=== PATIENT | male | born 1975 | race Caucasian/White ===

== ENCOUNTER 2025-04-15 13:51 | Inpatient (IN) | payer SELFPAY ==
[2025-04-15] VITALS (57 sets, daily range): BP systolic 79–166; BP diastolic 34–110; PULSE 92–148; RESP 10–28; TEMP 36.3; O2SAT 87–100
--- NOTE | 2025-04-15 13:58 | ECG_ITS ---
[facility] Test Date: 2025-04-15 Pat Name: Bala Canas Department: Room: Gender: Male Instrument Man: : 1975 Requested By: Bladimir Mtz Order Number: [id number] Moises MD: Vincent Bradford M.D. Measurements Intervals [place] Rate: 136 P: 0 RI: 0 QRS: 66 QRSD: 135 T: 21 QT: 348 QTc: 524 Interpretive Statements ATRIAL FIBRILLATION WITH RAPID VENTRICULAR RESPONSE INTRAVENTRICULAR CONDUCTION DELAY [130+ ms QRS DURATION] No previous ECG available for comparison Electronically Signed On 04-23-2025 09:27:54 CDT by Vincent Bradford M.D. [email or web address]
--- NOTE | 2025-04-15 14:00 | CT_ITS ---
WS: [id number] CT HEAD NONCONTRAST HISTORY: fall TECHNIQUE: Contiguous axial imaging performed through the brain. Bone and soft tissue windows. Sagittal and coronal reformats reviewed. All CT scans at [facility] use at least one of these dose optimization techniques: automated exposure control; mA and/or kV adjustment per patient size (includes targeted exams where dose is matched to clinical indication); or iterative reconstruction. DLP: 1133.45 mGy.cm COMPARISON: None available. No acute intracranial hemorrhage, midline shift or mass effect. No atrophy or prior infarcts or herniation. Ventricles: Normal size with no hydrocephalus. Paranasal sinuses: As visualized are clear. Mastoid air cells: Well pneumatized. Calvarium and scalp: Skull is intact with no soft tissue edema or swelling. CT/CT head wo con* [id number] IMPRESSION: Negative head CT.
--- NOTE | 2025-04-15 14:13 | W.ED.SYNCOPE ---
HPI - Syncope General: Chief Complaint: Syncope Stated Complaint: Syncope Time Seen by Provider: 04/15/25 13:53 Source: patient and EMS Mode of arrival: EMS Limitations: no limitations History of Present Illness: 49-year-old male states that he was at the store and had a syncopal event. He states he felt lightheaded and passed out at his head on the floor when he fell. States he has had a history of syncopal events in the past. He is initially hypotensive with EMS blood pressure here is normal he does have a history of A-fib is in A-fib with RVR here. He denies any chest pain has a mild headache from hitting his head Associated symptoms: Deny abdominal pain, chest pain, fever(s), headache(s) or nausea Related Data Home Medications ?Medication ?Instructions ?Recorded ?Confirmed albuterol sulfate 90 mcg/actuation 2 puff inhalation Q6H PRN 04/15/25 04/15/25 aerosol inhaler Shortness Of Breath Or Wheezing apixaban 5 mg tablet (Eliquis) 5 mg PO BID 04/15/25 04/15/25 bumetanide 2 mg tablet 6 mg PO BID 04/15/25 04/15/25 dapagliflozin propanediol 10 mg 10 mg PO DAILY 04/15/25 04/15/25 tablet (Farxiga) dofetilide 125 mcg capsule 125 mcg PO BID 04/15/25 04/15/25 fluticasone furoate 100 1 inh inhalation DAILY 04/15/25 04/15/25 mcg-vilanterol 25 mcg/dose inhalation powder (Breo Ellipta) methocarbamol 500 mg tablet 500 mg PO TID PRN muscles spasm 04/15/25 04/15/25 metolazone 5 mg tablet See Rx Instructions .Route .COMPLEX 04/15/25 04/15/25 pantoprazole 40 mg tablet,delayed 40 mg PO QPM 04/15/25 04/15/25 release potassium chloride 10 mEq 20 meq PO DAILY 04/15/25 04/15/25 tablet,extended release spironolactone 50 mg tablet 50 mg PO QAM 04/15/25 04/15/25 Allergies Allergy/AdvReac Type Severity Reaction Status Date / Time amiodarone Allergy Unknown Verified 04/15/25 13:55 Review of Systems Const: Denies: fever(s), chills, body aches or change in appetite ENMT: Denies: throat pain or dental pain Card: Reports: irregular heart rhythm and syncope; Denies: chest pain Resp: Denies: dyspnea GI: Denies: abdominal pain, nausea, vomiting or diarrhea Musc: Denies: neck pain or back pain Skin/Breast: Denies: rash Neuro: Denies: headache(s) Physical Exam Const: COMMON NORMALS: patient oriented x3 HENMT: COMMON NORMALS: normocephalic and atraumatic HEAD & SCALP: normocephalic and atraumatic Eye: COMMON NORMALS: Equal, round and reactive pupils present and EOMs intact bilaterally PUPIL: Yes Equal, round and reactive pupils present Neck/C-Spine: COMMON NORMALS: full ROM and supple Chest: COMMONS NORMALS: normal inspection of the chest Resp: COMMON NORMALS: normal respiratory effort, No retractions, No use of accessory muscles and clear to auscultation bilaterally AUSCULTATION: clear to auscultation bilaterally Cardio: COMMON NORMALS: No murmurs present (Cardio) RATE: tachycardic RHYTHM: abnormal rhythm irregularly irregular GI: COMMON NORMALS: Normal to inspection, nondistended, normoactive bowel sounds present, Soft to palpation, non-tender and no masses PALPATION: Yes Soft to palpation Extremity: COMMON NORMALS: normal to inspection and full ROM Neuro: COMMON NORMALS: patient oriented x3, moves all extremities and no focal motor deficits Psych: COMMON NORMALS: mental status grossly normal, Normal thought process present and cooperative THOUGHT PROCESS: Normal thought process present Skin: COMMON NORMALS: no rashes or lesions noted and no wounds GENERAL SKIN EXAM: no rashes or lesions noted Course Vital Signs: Vital signs: Vital Signs Temperature 97.4 F L 04/15/25 13:57 Pulse Rate 132 H 04/15/25 17:15 Respiratory Rate 12 04/15/25 17:15 Blood Pressure 139/110 04/15/25 17:15 Pulse Oximetry 98 04/15/25 17:10 MDM - Syncope Medical Decision Making 49-year-old male presented here after syncopal event he is in A-fib with RVR did find to be severely hypokalemic and hyponatremic. Did give him oral potassium along with IV fluids head CT is normal spoke to the hospitalist will admit at this time to the ICU Medical Records I reviewed the patient's medical records. Lab Data I reviewed the patient's lab results. 04/15/25 14:07 04/15/25 15:[address] 04/15/25 14:00 IMPRESSION: Negative head CT. Chest X-Ray 04/15/25 14:44 IMPRESSION: 1. Negative chest. Laboratory Results WBC 12.87 10^3/uL (3.29-11.43) H 04/15/25 14:07 RBC 5.36 10^6/uL (3.85-5.65) 04/15/25 14:07 Hgb 17.50 g/dL (11.27-16.99) H 04/15/25 14:07 Hct 46.8 % (37-53) 04/15/25 14:07 MCV 87.3 fl (82-101) 04/15/25 14:07 MCH 32.6 pg (27-33) 04/15/25 14:07 MCHC 37.4 g/dL (30-55) 04/15/25 14:07 RDW 13.8 % (12.1-15.1) 04/15/25 14:07 Plt Count 441 10^3/cmm (157-399) H 04/15/25 14:07 MPV 9.1 fL (7.4-10.4) 04/15/25 14:07 Neut % (Auto) 77.5 % 04/15/25 14:07 Lymph % (Auto) 10.6 % 04/15/25 14:07 Kane % (Auto) 9.9 % 04/15/25 14:07 Eos % (Auto) 0.1 % 04/15/25 14:07 Baso % (Auto) 0.2 % 04/15/25 14:07 Neut # (Auto) 9.97 10^3/uL (1.8-7.7) H 04/15/25 14:07 Lymph # (Auto) 1.4 10^3/uL (0.8-4.8) 04/15/25 14:07 Kane # (Auto) 1.3 10^3/uL (0.2-0.9) H 04/15/25 14:07 Eos # (Auto) 0.0 10^3/uL (0.0-0.8) 04/15/25 14:07 Baso # (Auto) 0.0 10^3/uL (0.0-0.1) 04/15/25 14:07 Nucleated RBC % (auto) 0 % 04/15/25 14:07 Nucleated RBCs # 0.0 /100WBC 04/15/25 14:07 Sodium 119 mmol/L (136-145) L* 04/15/25 15:03 Potassium 2.2 mmol/L (3.5-5.1) L* 04/15/25 15:03 Chloride 71 mmol/L (98-107) L 04/15/25 15:03 Carbon Dioxide 24 mmol/L (22-29) 04/15/25 15:03 Anion Gap 26.2 (5-19) H 04/15/25 15:03 BUN 56 mg/dL (6-20) H 04/15/25 15:03 Creatinine 1.5 mg/dL (0.7-1.2) H 04/15/25 15:03 GFR Calculation 49.5 mL/min (90-130) L 04/15/25 15:03 Glucose 134 mg/dL (65-115) H 04/15/25 15:03 Calculated Osmolality 265 mOsm/kg (285-295) L 04/15/25 15:03 Calcium 10.6 mg/dL (8.5-10.5) H 04/15/25 15:03 Magnesium 2.6 mg/dL (1.7-2.3) H 04/15/25 15:03 Total Bilirubin 1.3 mg/dL (0.15-1.2) H 04/15/25 14:07 AST 20 U/L (0-40) 04/15/25 14:07 ALT 21 U/L (0-41) 04/15/25 14:07 Alkaline Phosphatase 120 U/L (40-130) 04/15/25 14:07 Total Protein 8.9 g/dL (6.6-8.7) H 04/15/25 14:07 Albumin 4.5 g/dL (3.5-5.2) 04/15/25 14:07 Globulin 4.4 g/dL (1.3-4.6) 04/15/25 14:07 All radiology interpretation(s) finalized by discharge EKG Data EKG 1: I personally reviewed and interpreted this EKG as follows: EKG interpretation date: 04/15/25 EKG interpretation time: 13:58 Interpretation: afib rvr hr [address] elevation [id number] qtc 428 Critical Care Time Critical Care Time: Critical Care Time: Yes Total Critical Care Time: 40 Attestation: The high probability of a clinically significant, sudden or life threatening deterioration of the patient's electrolytes system(s) required my full and direct attention, intervention and personal management. The critical care time is as shown. This time is in addition to time spent performing any reported procedures but includes the following: [x] Data and vital sign review and interpretation [x] Patient assessment, examination and intervention [x] Documentation [x] Medication orders and management Discharge Plan Discharge Patient Disposition: Admitted As Inpatient Admit Provider: Claudette Sanders Clinical Impression: Hypokalemia, Hyponatremia, Syncope, Atrial fibrillation with RVR Condition: Stable Coding Level of Care Code ED Supervisor Paper Machine for Henrikg Carolee
[2025-04-15] MEDS: sodium chloride 0.9% 1,000 ML 999 ML IV (14:19)
[2025-04-15 14:35] LABS: Basophils % 0.2 %; Eosinophils % 0.1 %; Hematocrit 46.8 % (37-53); Lymphocytes # 1.4 10^3/uL (0.8-4.8); Lymphocytes % 10.6 %; Mean Corpuscular HGB Conc 37.4 g/dL (30-55); Mean Corpuscular Hemoglobin 32.6 pg (27-33); Mean Corpuscular Volume 87.3 fl (82-101); Mean Platelet Volume 9.1 fL (7.4-10.4); Monocytes # 1.3 10^3/uL (0.2-0.9); Monocytes % 9.9 %; Neutrophils # 9.97 10^3/uL (1.8-7.7); Neutrophils % 77.5 %; Nucleated Red Blood Cells % 0 %; Platelet Count 441 10^3/cmm (157-399); Red Blood Count 5.36 10^6/uL (3.85-5.65); Red Cell Distribution Width 13.8 % (12.1-15.1); White Blood Count 12.87 10^3/uL (3.29-11.43)
--- NOTE | 2025-04-15 14:44 | XR_ITS ---
WS: [id number] Exam: XR chest 1V portable [id number] Date/Time of Exam: 04/15/2025 2:54 PM Reason For Exam: sob No priors. The lungs are clear and fully expanded. Normal cardiomediastinal silhouette. No pleural effusions. Normal bony structures. XR/XR chest 1V portable [id number] IMPRESSION: 1. Negative chest.
[2025-04-15 14:50] LABS: Alanine Aminotransferase 21 U/L (0-41); Albumin Level 4.5 g/dL (3.5-5.2); Alkaline Phosphatase 120 U/L (40-130); Anion Gap 28.4 (5-19); Aspartate Amino Transferase 20 U/L (0-40); Blood Urea Nitrogen 58 mg/dL (6-20); Calcium 10.9 mg/dL (8.5-10.5); Carbon Dioxide 24 mmol/L (22-29); Chloride 69 mmol/L (98-107); Globulin 4.4 g/dL (1.3-4.6); Glucose 139 mg/dL (65-115); Osmolality Calculated 266 mOsm/kg (285-295); Total Bilirubin 1.3 mg/dL (0.15-1.2); Total Protein 8.9 g/dL (6.6-8.7)
[2025-04-15 14:53] LABS: Potassium 2.4 mmol/L (3.5-5.1); Sodium 119 mmol/L (136-145)
[2025-04-15 15:24] LABS: Anion Gap 26.2 (5-19); Blood Urea Nitrogen 56 mg/dL (6-20); Calcium 10.6 mg/dL (8.5-10.5); Carbon Dioxide 24 mmol/L (22-29); Chloride 71 mmol/L (98-107); Glomerular Filtration Rate 49.5 mL/min (90-130); Glucose 134 mg/dL (65-115); Osmolality Calculated 265 mOsm/kg (285-295)
[2025-04-15] MEDS: dilTIAZem 5 mg/mL SDV 5 mL 10 MG IVP ×2 (15:26→18:18)
[2025-04-15] MEDS: ondansetron 2 mg/ML SDV 2 mL 4 MG IVP (15:27)
[2025-04-15 15:29] LABS: Potassium 2.2 mmol/L (3.5-5.1); Sodium 119 mmol/L (136-145)
[2025-04-15] MEDS: potassium chloride ER 20 mEq Tablet 80 MEQ PO (15:51)
[2025-04-15 15:58] LABS: Magnesium 2.6 mg/dL (1.7-2.3)
--- NOTE | 2025-04-15 17:03 | PC.PHAR ---
I called [facility] and received their List from discharge of patient
--- NOTE | 2025-04-15 17:30 | PM.HP ---
Providers/Chief Complaint Admitting Physician: Claudette Sanders MD Chief Complaint: Syncope History of Present Illness Bala Cook is a 49 year old male with a PMH A fib on A/c with and dofetilide who is brought to the ER after having had a syncopal episode at [facility] earlier this afternoon. Patient denies having had any immediate symptoms prior to the syncopal event however says he had been feeling poorly the past few days with generalized weakness. He was admitted at [facility] most recently 3-4 weeks ago for A fib with RVR and had undergone cardioversion. He reports multiple past episodes of A fib RVR , which have needed cardioversion in the past. On Avg, he has needed the procedure at least once a year. He has previously had an ablative procedure which was not successful in keeping in sinus rhythm. He has been recommended to undergo AV node ablation with PPM implantation and is considering this. He has previously tried several medications including sotalol which has not helped. 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 Most recently he is on dofetilide 125mcg BID. He is noted today to have hyponatremia and hypokalemia. He states he has chronic hyponatremia, for which he is on spirinolactone daily, i suspect he may be referring to hypokalemia instead. He takes Bumex everyday for h/o CHF. There has been no recent changes in his diuretic regimen. Denies any GI losses, no nausea, vomiting. Review of Systems General: Reports: 10 or more systems reviewed and unremarkable except in HPI and below Const: Denies: fever(s), chills or body aches Eyes: Denies: change in vision, blurry vision or photophobia ENMT: Reports: hoarseness; Denies: throat pain, enlarged tonsils, odynophagia or nasal congestion Card: Denies: chest pain, palpitations, irregular heart rhythm, edema, swelling of feet/ankles, lightheadedness, pre-syncope, dyspnea on exertion or orthopnea Resp: Denies: dyspnea, productive cough, non-productive cough, wheezing, stridor, pain on inspiration, change in phlegm color, hemoptysis or chest congestion GI: Denies: abdominal pain, nausea, vomiting, hematemesis, coffee ground emesis, dysphagia, heartburn, diarrhea, constipation, GI cramping, change in stool character, hematochezia or melena : Denies: flank pain, dysuria, urinary frequency, urinary urgency, urinary hesitancy or hematuria Musc: Denies: neck pain, back pain, extremity pain, joint swelling, joint warmth or deformity Neuro: Denies: headache(s), numbness in extremities, weakness in extremities, sensory changes, difficulty walking, frequent falls, dizziness, vertigo, behavioral changes, Slurred speech present or seizure-like activity Psych: Denies: anxiety, depression, suicidal ideation or homicidal ideation Endo: Denies: polyuria, polydipsia, tired all the time, cold intolerance or hot flashes Shine/Lymph: Denies: easy bruising or easy bleeding Medications/Allergies Home Medications ?Medication ?Instructions ?Recorded ?Confirmed ?Last Taken ?Type albuterol sulfate 90 mcg/actuation 2 puff inhalation Q6H PRN 04/15/25 04/15/25 Unknown History aerosol inhaler Shortness Of Breath Or Wheezing apixaban 5 mg tablet (Eliquis) 5 mg PO BID 04/15/25 04/15/25 04/15/25 History bumetanide 2 mg tablet 6 mg PO BID 04/15/25 04/15/25 04/15/25 History dapagliflozin propanediol 10 mg 10 mg PO DAILY 04/15/25 04/15/25 04/15/25 History tablet (Farxiga) dofetilide 125 mcg capsule 125 mcg PO BID 04/15/25 04/15/25 04/15/25 History fluticasone furoate 100 1 inh inhalation DAILY 04/15/25 04/15/25 04/14/25 History mcg-vilanterol 25 mcg/dose inhalation powder (Breo Ellipta) methocarbamol 500 mg tablet 500 mg PO TID PRN muscles spasm 04/15/25 04/15/25 04/15/25 History metolazone 5 mg tablet See Rx Instructions .Route .COMPLEX 04/15/25 04/15/25 04/15/25 History pantoprazole 40 mg tablet,delayed 40 mg PO QPM 04/15/25 04/15/25 04/14/25 19:00 History release potassium chloride 10 mEq 20 meq PO DAILY 04/15/25 04/15/25 04/14/25 History tablet,extended release spironolactone 50 mg tablet 50 mg PO QAM 04/15/25 04/15/25 04/14/25 History Allergies Allergy/AdvReac Type Severity Reaction Status Date / Time amiodarone Allergy Unknown Verified 04/15/25 13:55 Vitals/I&O/Wt Last Vital Signs Temp 97.4 F L 04/15/25 13:57 Pulse 109 H 04/15/25 21:46 Resp 16 04/15/25 21:46 BP 117/61 04/15/25 21:46 Pulse Ox 97 04/15/25 21:46 O2 Del Method Room Air 04/15/25 21:46 04/15/25 04/15/25 04/15/25 06:59 14:59 22:59 Intake Total 1000 / 1000 Balance 1000 / 1000 Weight last 48 hrs Weight 117.934 kg Physical Exam Narrative: General: No acute distress, AO x3 HEENT: PERRLA, pupils bilaterally equal and reactive, pallors not present Chest: Normal vesicular breath sounds, no added sounds, equal good air entry bilaterally CVS: S1-S2 regular, no murmurs, no tachycardia, no gallops, no rubs Abdomen: Soft, nontender, no organomegaly, bowel sounds present Neuro: No focal deficits, no facial deformity, AO x3, power 5/5 in all limbs Ext: Bruising over the left elbow Data 04/15/25 14:07 04/15/25 17:54 Other data: Radiology Impressions Head CT 04/15/25 14:00 IMPRESSION: Negative head CT. Chest X-Ray 04/15/25 14:44 IMPRESSION: 1. Negative chest. Laboratory Results WBC 12.87 10^3/uL (3.29-11.43) H 04/15/25 14:07 RBC 5.36 10^6/uL (3.85-5.65) 04/15/25 14:07 Hgb 17.50 g/dL (11.27-16.99) H 04/15/25 14:07 Hct 46.8 % (37-53) 04/15/25 14:07 MCV 87.3 fl (82-101) 04/15/25 14:07 MCH 32.6 pg (27-33) 04/15/25 14:07 MCHC 37.4 g/dL (30-55) 04/15/25 14:07 RDW 13.8 % (12.1-15.1) 04/15/25 14:07 Plt Count 441 10^3/cmm (157-399) H 04/15/25 14:07 MPV 9.1 fL (7.4-10.4) 04/15/25 14:07 Neut % (Auto) 77.5 % 04/15/25 14:07 Lymph % (Auto) 10.6 % 04/15/25 14:07 [place] % (Auto) 9.9 % 04/15/25 14:07 Eos % (Auto) 0.1 % 04/15/25 14:07 Baso % (Auto) 0.2 % 04/15/25 14:07 Neut # (Auto) 9.97 10^3/uL (1.8-7.7) H 04/15/25 14:07 Lymph # (Auto) 1.4 10^3/uL (0.8-4.8) 04/15/25 14:07 [place]entry # (Auto) 1.3 10^3/uL (0.2-0.9) H 04/15/25 14:07 Eos # (Auto) 0.0 10^3/uL (0.0-0.8) 04/15/25 14:07 Baso # (Auto) 0.0 10^3/uL (0.0-0.1) 04/15/25 14:07 Nucleated RBC % (auto) 0 % 04/15/25 14:07 Nucleated RBCs # 0.0 /100WBC 04/15/25 14:07 Sodium 121 mmol/L (136-145) L 04/15/25 17:54 Potassium 2.6 mmol/L (3.5-5.1) L* 04/15/25 17:54 Chloride 73 mmol/L (98-107) L 04/15/25 17:54 Carbon Dioxide 26 mmol/L (22-29) 04/15/25 17:54 Anion Gap 24.6 (5-19) H 04/15/25 17:54 BUN 54 mg/dL (6-20) H 04/15/25 17:54 Creatinine 1.4 mg/dL (0.7-1.2) H 04/15/25 17:54 GFR Calculation 53.6 mL/min (90-130) L 04/15/25 17:54 Glucose 115 mg/dL (65-115) 04/15/25 17:54 POC Glucose 140 mg/dL (70-110) H 04/15/25 21:15 Calculated Osmolality 268 mOsm/kg (285-295) L 04/15/25 17:54 Calcium 10.2 mg/dL (8.5-10.5) 04/15/25 17:54 Magnesium 2.6 mg/dL (1.7-2.3) H 04/15/25 15:03 Total Bilirubin 1.3 mg/dL (0.15-1.2) H 04/15/25 14:07 AST 20 U/L (0-40) 04/15/25 14:07 ALT 21 U/L (0-41) 04/15/25 14:07 Alkaline Phosphatase 120 U/L (40-130) 04/15/25 14:07 Total Protein 8.9 g/dL (6.6-8.7) H 04/15/25 14:07 Albumin 4.5 g/dL (3.5-5.2) 04/15/25 14:07 Globulin 4.4 g/dL (1.3-4.6) 04/15/25 14:07 A&P Assessment and plan (1) Syncope: patient with history as noted above presenting with syncopal episode today Supect this may be related to underlying arrhythmia as he is noted to be in A fib with RVR. States that he had cardioversion one month ago following which he had been in sinus rhythm and is surprised to be in A fib today. Possible that RVR may have led to the syncope today, CT head did not show any intracranial lesions or any bleeding check echocardiogram (2) Atrial fibrillation with RVR: Noted to be in A fib with RVR Continue dofetilide Trial of cardizem 10mg IVP followed by cardizem infusion for rate control. Will add bet ablockers additionally Patient reports failiure of several previosu drug classes , uncertain if tried digoxin in the past. 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 related to dofetilide check urine lytes start NS @ 50 cc/ hr and closely monitor. Aim to increase Na by 6-8 meq per 24 hrs , unceratin chronicity check Na every 6 hrs (4) Hypokalemia: hypokalemia, likely medication related supplemented both iv and po check Na every 6 hrs Plan dvt ppx: Eliquis Full code PDMP PDMP Reviewed: Not Reviewed Attestations Medical Necessity Statement*: > 2 midnight admission is anticipated Coding Level of Care Code Acute Code for Chg Fwd High MDM includes number and complexity of problems actively addressed during encounter, amount and/or complexity of data reviewed/ordered and described risk of complication, morbidity or mortality of management as documented Diagnoses Syncope R55 Atrial fibrillation with RVR I48.91 Hyponatremia E87.1 Hypokalemia E87.6
--- NOTE | 2025-04-15 17:42 | USCV_ITS ---
Bala Cook Age: 49 Gender: M : 1975 Exam Date: 04/15/2025 19:45 Ordering Phys: Claudette Sanders MD Technologist: Benigno Castañeda [place] [facility] [place]: syncope, atrial fibrillation BP: 139 / 110 HR: 102 Rhythm: Atrial fibrillation Technical Quality: Adequate MEASUREMENTS (Male / Female) Normal Values 2D ECHO LV Diastolic Diameter PLAX 5.7 cm 4.2 - 5.9 / 3.9 - 5.3 cm IVS Diastolic Thickness 1.5 cm 0.6 - 1.0 / 0.6 - 0.9 cm IVS Systolic Thickness 1.3 cm LVPW Diastolic Thickness 1.4 cm 0.6 - 1.0 / 0.6 - 0.9 cm LVPW Systolic Thickness 1.7 cm LVOT Diameter 2.3 cm LV Ejection Fraction 2D Teich 26.7 % LV Ejection Fraction MOD 4C 16.7 % LV Ejection Fraction MOD 2C 26.9 % LV Ejection Fraction 2C AL 25.7 % LA Diameter 5.1 cm Aorta at Sinotubular Diameter 3.2 cm IVC Diameter 1.1 cm M-MODE LA Ao Ratio MM 1.1 AV Cusp Separation MM 2.1 cm DOPPLER AV Peak Velocity 123.0 cm/s LVOT Peak Velocity 58.0 cm/s AV Area Cont Eq vti 1.6 cm squared AV Area Cont Eq pk 1.9 cm squared MV Peak Velocity 74.0 cm/s MV Area PHT 3.3 cm squared Mitral E to A Ratio 0.0 TR Peak Velocity 194.0 cm/s TR Peak Gradient 15.1 mmHg TV Peak E Velocity 19.0 cm/s PV Peak Velocity 79.0 cm/s FINDINGS Left Ventricle Left ventricle is mildly dilated. LV systolic function is severely reduced with EF of 25-30%. Severe global hypokinesis. Right Ventricle Normal in size and function Right Atrium Dilated Left Atrium Dilated Mitral Valve Structurally normal normal mitral valve. Mild to moderate mitral regurgitation. Aortic Valve Structurally normal aortic valve. No significant stenosis Tricuspid Valve Insufficient TR jet to calculate RVSP Pulmonic Valve Not well visualized Pericardium Normal Aorta Normal in size IVC Appears to be normal CONCLUSIONS LV systolic function is severely reduced with EF of 25-30% Biatrial dilation Mild to moderate mitral regurgitation No comparison studies are available. Vincent Bradford MD (Electronically Signed) Final Date: 16 April 2025 12:01 S
[2025-04-15] MEDS: apixaban 5 mg Tablet PO (18:17)
[2025-04-15] MEDS: pantoprazole DR 40 mg Tablet PO (18:17)
[2025-04-15] MEDS: dilTIAZem 100 MG in sodium chloride 0.9% (add-van) 100 ML IV (18:19)
[2025-04-15 18:21] LABS: Anion Gap 24.6 (5-19); Blood Urea Nitrogen 54 mg/dL (6-20); Calcium 10.2 mg/dL (8.5-10.5); Carbon Dioxide 26 mmol/L (22-29); Chloride 73 mmol/L (98-107); Glomerular Filtration Rate 53.6 mL/min (90-130); Glucose 115 mg/dL (65-115); Osmolality Calculated 268 mOsm/kg (285-295); Sodium 121 mmol/L (136-145)
[2025-04-15 18:24] LABS: Potassium 2.6 mmol/L (3.5-5.1)
[2025-04-15] MEDS: sodium chlor 0.9% + KCl 20 mEq 20 MEQ/1,000 ML BAG 50 MEQ IV (18:26)
[2025-04-15 18:42] LABS: Glucose Point of Care 132 mg/dL (70-110)
[2025-04-15 21:18] LABS: Glucose Point of Care 140 mg/dL (70-110)
[2025-04-15] MEDS: lidocaine 1% 5 ML in potassium chloride premix 100 ML 26.25 ML IV (23:18)
[2025-04-15] MEDS: metoprolol tartrate 25 mg Tablet 12.5 MG PO (23:28)
[2025-04-16] VITALS (82 sets, daily range): BP systolic 75–136; BP diastolic 47–83; PULSE 50–117; RESP 10–25; TEMP 36.4–36.9; O2SAT 84–100
[2025-04-16 01:41] LABS: Blood Urea Nitrogen 54 mg/dL (6-20); Calcium 10.6 mg/dL (8.5-10.5); Carbon Dioxide 23 mmol/L (22-29); Chloride 74 mmol/L (98-107); Glomerular Filtration Rate 58.4 mL/min (90-130); Glucose 112 mg/dL (65-115); Osmolality Calculated 266 mOsm/kg (285-295); Sodium 120 mmol/L (136-145)
[2025-04-16 04:51] LABS: Basophils % 0.2 %; Eosinophils % 0.2 %; Hematocrit 44.2 % (37-53); Lymphocytes # 1.8 10^3/uL (0.8-4.8); Mean Corpuscular HGB Conc 37.3 g/dL (30-55); Mean Corpuscular Hemoglobin 32.8 pg (27-33); Mean Corpuscular Volume 87.9 fl (82-101); Mean Platelet Volume 8.7 fL (7.4-10.4); Monocytes % 13.1 %; Neutrophils # 11.09 10^3/uL (1.8-7.7); Neutrophils % 73.3 %; Nucleated Red Blood Cells % 0 %; Platelet Count 367 10^3/cmm (157-399); Red Blood Count 5.03 10^6/uL (3.85-5.65); Red Cell Distribution Width 13.8 % (12.1-15.1); White Blood Count 15.14 10^3/uL (3.29-11.43)
[2025-04-16 05:10] LABS: Anion Gap 21.8 (5-19); Blood Urea Nitrogen 53 mg/dL (6-20); Carbon Dioxide 25 mmol/L (22-29); Chloride 78 mmol/L (98-107); Glomerular Filtration Rate 53.6 mL/min (90-130); Glucose 110 mg/dL (65-115); Magnesium 2.6 mg/dL (1.7-2.3); Osmolality Calculated 267 mOsm/kg (285-295); Potassium 3.8 mmol/L (3.5-5.1); Sodium 121 mmol/L (136-145)
[2025-04-16 05:41] LABS: Urine Random Sodium 38 mmol/L
[2025-04-16] MEDS: potassium chloride ER 20 mEq Tablet 40 MEQ PO ×4 (09:40→19:22)
[2025-04-16] MEDS: pantoprazole DR 40 mg Tablet PO ×2 (09:40→18:27)
[2025-04-16] MEDS: apixaban 5 mg Tablet PO ×2 (09:40→17:45)
--- NOTE | 2025-04-16 09:42 | PC.NURSE ---
per Dr Sanders, do not administer 3% sodium that was ordered overnight but not started, and plan to recheck sodium level at 1000.
[2025-04-16 10:37] LABS: Anion Gap 19.7 (5-19); Blood Urea Nitrogen 50 mg/dL (6-20); Carbon Dioxide 28 mmol/L (22-29); Chloride 79 mmol/L (98-107); Glomerular Filtration Rate 53.6 mL/min (90-130); Glucose 98 mg/dL (65-115); Osmolality Calculated 271 mOsm/kg (285-295); Sodium 124 mmol/L (136-145)
[2025-04-16 10:57] LABS: Potassium 2.7 mmol/L (3.5-5.1)
--- NOTE | 2025-04-16 11:31 | P.CONIM_ITS ---
<Statement entered by Vincent Bradford M.D - 04/20/25 14:31> Patient was evaluated and cared for in conjunction with an advanced practice practitioner.? I personally examined the patient and reviewed the chart and all pertinent data including imaging, telemetry, and laboratory results.? I discussed the patient in detail with the advanced practice practitioner.? Please see? their note for complete consult note, testing results and agreed upon plan of care for the patient. Continue metoprolol and Eliquis. Keep holding dofetilide. If heart rates do not improve by tomorrow, we will plan on cardioversion. Hold diuretics secondary to electrolyte abnormalities. GENERAL: Patient is alert, awake and oriented x3. HEART: Irregularly irregular, tachycardic LUNGS: Clear to auscultate bilaterally. CENTRAL NERVOUS SYSTEM: Grossly nonfocal. EXTREMITIES: Lower extremities without edema bilaterally. Providers/Reason For Consult 2 Consulting Physician/Specialty*: Dr. Bradford Reason for Consult*: A-fib RVR Requesting Physician: Dr. Sanders Attending Physician: Claudette Sanders MD History of Present Illness History of Present Illness Bala Cook is a 49 year old male previous smoker history of A-fib requiring multiple cardioversions, previous smoker, per patient heart failure, chronically anticoagulated came into the ER via EMS due to a syncopal episode while he was at [facility]. He did hit his head but complains of no acute neurological symptoms from this. CT of the head was negative. In the emergency room he was found to be in A-fib RVR with rates in the 130s. He states he cannot take amiodarone due to eyesight issues from this. He takes Tikosyn at home. He states he takes a large amount of Bumex 6 mg twice daily for heart failure. His electrolytes were abnormal when he was admitted. Potassium was 2.6 sodium 121. Creatinine elevated at 1.4. He was given IV push Cardizem and placed on a drip. He responded well to this and heart rates are currently well-controlled. He states he has had an ablation in the past and was told he needs to have another one with possible pacemaker placement. He denies any hx of coronary artery disease. He does state he has sleep apnea and sleeps with a CPAP for this. He appears well compensated on exam. He states that just 3 weeks ago he had to be cardioverted at [facility] in [place]. This is where his edge finisher is. He has had an echo, but has not been read yet. Review of Systems 2 Narrative: Consitutional: denies fever, chills, body aches, or changes in appetite, denies abnormal weight loss Eyes: Denies changes in vision Card: Denies chest pain, palpitations, reports afib, edema, syncope, shortness of breath, orthopnea, leg pain with exertion Resp: Denies shortness of breath, denies hemoptysis, denies cough GI: denies abdominal pain, denies nausea or voimting, denies blood in stool : denies blood in urine, denies dysuria Musc: Denies extremity pain, denies limited range of motion or recent injury Skin: Denies rash, lesions, or wounds, denies changes to skin color Neuro: Denies nubmness in extremities, h/a, s/s of stroke Shine: Denies easy bruiding/bleeding Medications/Allergies Home Medications ?Medication ?Instructions ?Recorded ?Confirmed ?Last Taken ?Type albuterol sulfate 90 mcg/actuation 2 puff inhalation Q 6H PRN 04/15/25 04/15/25 Unknown History aerosol inhaler Shortness Of Breath Or Wheez ing apixaban 5 mg tablet (Eliquis) 5 mg PO BID 04/15/2504/15/25 History bumetanide 2 mg tablet 6 mg PO BID 04/15/25 5 04/15/25 History dapagliflozin propanediol 10 mg 10 mg PO DAILY 5 04/15/25 04/15/25 History tablet (Farxiga) dofetilide 125 mcg capsule 125 mcg PO BID 04/15/2504/15/25 History fluticasone furoate 100 1 inh inhalation DAILY 04/1504/15/25 04/14/25 History mcg-vilanterol 25 mcg/dose inhalation powder (Breo Ellipta) methocarbamol 500 mg tablet 500 mg PO TID PRN muscles spasm 04/15/25 04/15/25 04/15/25 History metolazone 5 mg tablet See Rx Instructions .Route . COMPLEX 04/15/25 04/15/25 04/15/25 History pantoprazole 40 mg tablet,delayed 40 mg PO QPM 5 04/15/25 04/14/25 19:00 History release potassium chloride 10 mEq 20 meq PO DAILY 04/15/2504/14/25 History tablet,extended release spironolactone 50 mg tablet 50 mg PO QAM 04/15/2503/2304/14/25 History Allergies Allergy/AdvReac Type Severity Reaction Status Date / Time amiodarone Allergy Unknown Verified 04/15/25 13:55 Current Medications Generic Name Dose Route Start Last Admin Trade Name Freq PRN Reason Stop Dose Admin Apixaban 5 mg 04/15/25 18:00 04/16/25 09:40 Apixaban 5 Mg Tablet PO 5 mg BID NARA Administration Potassium Chloride/Sodium Chloride 20 meq in 1,000 mls @ 50 mls/hr 04/15/25 17:45 04/15/25 18:26 Sodium Chlor 0.9% + Kcl 20 Meq IV 50 mls/hr .Q20H NARA Administration Diltiazem HCl 100 mg/ Sodium 100 mls @ 0 mls/hr 04/15/25 17:45 04/15/25 18:19 Chloride IV 5 mg/hr .Q0M ANRA 5 mls/hr Protocol Administration Per Protocol Insulin Human Lispro 0 unit 04/15/25 18:00 04/16/25 09:12 Insulin Lispro 100 Unit/1 Ml SUBCUT Not Given WM&BEDTIME NARA Protocol Metoprolol Tartrate 12.5 mg 04/15/25 22:45 04/15/25 23:28 Metoprolol Tartrate 25 Mg Tablet PO 12.5 mg Q12H NARA Administration Pantoprazole Sodium 40 mg 04/16/25 09:00 04/16/25 09:[address] 40 Mg Tablet PO 40 mg DAILY NARA Administration Pantoprazole Sodium 40 mg 04/15/25 18:00 04/15/25 18:[address] 40 Mg Tablet PO 40 mg QPM NARA Administration Potassium Chloride 40 meq 04/16/25 09:00 04/16/25 09:40 Potassium Chloride Er 20 Meq Tablet PO 40 meq DAILY NARA Administration Vitals/I&O/Wt Last Vital Signs Temp 97.4 F L 04/15/25 13:57 Pulse 50 L 04/16/25 11:11 Resp 16 04/16/25 11:11 BP 104/54 04/16/25 11:11 Pulse Ox 100 04/16/25 11:11 O2 Del Method Room Air 04/16/25 11:11 04/15/25 04/16/25 04/16/25 22:59 06:59 14:59 Intake Total 1000 / 1000 105 / 105 Balance 1000 / 1000 105 / 105 Weight last 48 hrs Weight 260 lb Physical Exam 2 Narrative: General: No apparent distress, healthy appearing, well nourished HENMT: normoceophalic Neck: No carotid bruit bilaterally Muskuloskeletal: Full ROM Respiratory: Normal respiratory effort, clear to auscultation bilaterally throughout all lung wells, no use of accessory muscles Cardio: No JVD, irregularly irregular rate and rhythm, S1 S2 normal, no murmurs, peripheral pulses 2+ radial palpated bilaterally GI: Normal to inspection, nondistended Extremities: Full ROM, normal, normal capillary refill, no cyanosis or edema Neuro: Alert and oriented x4, no focal motor deficits Psych: Affect normal, denies suicidal ideation, mental status grossly normal Skin: No rashes or lesions noted, no wounds Data 04/16/25 04:47 04/16/25 10:08 A&P Assessment and plan (1) Atrial fibrillation with RVR: (2) Hyponatremia: (3) Hypokalemia: (4) Syncope: Plan At this time, patient's rates are controlled. Would recommend rate controlling strategy with Cardizem drip, then possibly transition to oral tomorrow. Continue Eliquis for stroke prevention. Echo has been done but not read. Further recommendations after this. Continue metoprolol 12.5 mg q12. Potassium is still low at 2.7 and sodium is still low. Recommend continued replacement. Electrolyte abnormalities possibly from Tikosyn and high diuretic use could be contributing to the afib as well. Recommend discontinuing Tikosyn. Will hold diuretics at this time as patient is euvolemic and has low potassium. Thank you, Dr. Sanders, for allowing us to care for this very pleasant 49 year old gentleman. PDMP PDMP Reviewed: Not Reviewed Coding Level of Care Code Acute Code for Chg Fwd Diagnoses Atrial fibrillation with RVR I48.91 Hyponatremia E87.1 Hypokalemia E87.6 Syncope, unspecified syncope type R55 Syncope type: unspecified
[2025-04-16] MEDS: metoprolol tartrate 25 mg Tablet 12.5 MG PO ×2 (11:44→22:17)
[2025-04-16 13:01] LABS: Glucose Point of Care 120 mg/dL (70-110)
--- NOTE | 2025-04-16 13:31 | PC.NURSE ---
Transfer note: REceived patient from ER staff at 1217. Patient is alert and oriented to person, place, time, and situation. BP: 95/66, HR: 93 and afib, RR: 18, SPO2: 93%. Off of cardizem, metoprolol given 1 hr ago.
[2025-04-16] MEDS: sodium chlor 0.9% + KCl 20 mEq 20 MEQ/1,000 ML BAG 50 MEQ IV (13:47)
--- NOTE | 2025-04-16 16:47 | P.PN_ITS ---
Subjective 2 Subjective: Heart rate continues to be in A-fib, however rate is better controlled today between 1-200. Sodium is improving at 124. Medications: Reviewed: Yes Vitals/I&O/Wt Last Vital Signs Temp 97.4 F L 04/15/25 13:57 Pulse 97 04/16/25 14:00 Resp 12 04/16/25 12:00 BP 109/70 04/16/25 13:30 Pulse Ox 96 04/16/25 13:30 O2 Del Method Room Air 04/16/25 13:43 04/16/25 04/16/25 04/16/25 06:59 14:59 22:59 Intake Total 1163.417 / 1163.417 Balance 1163.417 / 1163.417 Weight last 48 hrs Weight 115.666 kg Weight 117.934 kg Physical Exam 2 Narrative: General: No acute distress, AO x3 HEENT: PERRLA, pupils bilaterally equal and reactive, pallors not present Chest: Normal vesicular breath sounds, no added sounds, equal good air entry bilaterally CVS: S1-S2 regular, no murmurs, no tachycardia, no gallops, no rubs Abdomen: Soft, nontender, no organomegaly, bowel sounds present Neuro: No focal deficits, no facial deformity, AO x3, power 5/5 in all limbs Ext: Bruising over the left elbow Data 04/17/25 04:33 04/17/25 04:33 A&P Assessment and plan (1) Syncope: patient with history as noted above presenting with syncopal episode today Supect this may be related to underlying arrhythmia as he is noted to be in A fib with RVR. States that he had cardioversion one month ago following which he had been in sinus rhythm and is surprised to be in A fib today. Possible that RVR may have led to the syncope today, CT head did not show any intracranial lesions or any bleeding check echocardiogram (2) Atrial fibrillation with RVR: Noted to be in A fib with RVR Continue dofetilide Trial of cardizem 10mg IVP followed by cardizem infusion for rate control. Will add bet ablockers additionally Patient reports failiure of several previosu drug classes , uncertain if tried digoxin in the past. 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 related to dofetilide check urine lytes start NS @ 50 cc/ hr and closely monitor. Aim to increase Na by 6-8 meq per 24 hrs , unceratin chronicity check Na every 6 hrs (4) Hypokalemia: hypokalemia, likely medication related supplemented both iv and po check Na every 6 hrs Plan dvt ppx: Eliquis Full code April 17, 2025 Hypokalemia this morning, supplemented with both IV and oral potassium. Improving this afternoon. Sodium improving at 124. Discontinue IV fluids. Start oral salt supplementation, 1 g p.o. daily and closely monitor sodium level. Patient continues to be in A-fib, however rate is better controlled. Discontinue IV fluids today. Will likely undergo WILLI cardioversion tomorrow. Keep n.p.o. for anticipated procedure tomorrow. PDMP PDMP Reviewed: Not Reviewed Attestations 2 Medical Necessity Statement*: A fib, hyponatremia, hypokalemia, needs cardioversion Coding Level of Care Code Acute Code for Chg Fwd High MDM includes number and complexity of problems actively addressed during encounter, amount and/or complexity of data reviewed/ordered and described risk of complication, morbidity or mortality of management as documented Diagnoses Syncope, unspecified syncope type R55 Syncope type: unspecified Atrial fibrillation with RVR I48.91 Hyponatremia E87.1 Hypokalemia E87.6
[2025-04-16 16:49] LABS: Glucose Point of Care 99 mg/dL (70-110)
[2025-04-16 18:07] LABS: Anion Gap 18.2 (5-19); Blood Urea Nitrogen 44 mg/dL (6-20); Carbon Dioxide 26 mmol/L (22-29); Chloride 83 mmol/L (98-107); Glomerular Filtration Rate 70.9 mL/min (90-130); Glucose 113 mg/dL (65-115); Osmolality Calculated 270 mOsm/kg (285-295); Potassium 3.2 mmol/L (3.5-5.1); Sodium 124 mmol/L (136-145)
--- NOTE | 2025-04-16 18:31 | PC.NURSE ---
Shift SUmmary: Uneventful shift since arrival mid day from ER. Cardiac: Remains in afib. variable between 80-[address] nava has considered increasing his metprolol form 12.5 mg q12h to 25mg q12h, but blood pressures have been too low (usually 90's systolic). Considering Cardioversion tomorrow, but not confirmed. NPO at midnight.
[2025-04-16] MEDS: sodium chloride 1 gm Tablet PO (19:22)
[2025-04-16 20:16] LABS: Glucose Point of Care 124 mg/dL (70-110)
[2025-04-16 23:30] LABS: Blood Urea Nitrogen 36 mg/dL (6-20); Calcium 9.4 mg/dL (8.5-10.5); Carbon Dioxide 29 mmol/L (22-29); Chloride 87 mmol/L (98-107); Glomerular Filtration Rate 64.1 mL/min (90-130); Glucose 126 mg/dL (65-115); Osmolality Calculated 274 mOsm/kg (285-295); Sodium 127 mmol/L (136-145)
[2025-04-17] VITALS (27 sets, daily range): BP systolic 76–113; BP diastolic 63–83; PULSE 65–122; RESP 11–25; TEMP 36.6; O2SAT 95–100
[2025-04-17 04:58] LABS: Basophils # 0.1 10^3/uL (0.0-0.1); Basophils % 0.4 %; Eosinophils # 0.1 10^3/uL (0.0-0.8); Eosinophils % 0.6 %; Lymphocytes # 1.9 10^3/uL (0.8-4.8); Lymphocytes % 14.1 %; Mean Corpuscular Hemoglobin 33.5 pg (27-33); Mean Corpuscular Volume 93.1 fl (82-101); Mean Platelet Volume 9.1 fL (7.4-10.4); Monocytes # 1.9 10^3/uL (0.2-0.9); Monocytes % 13.9 %; Neutrophils # 9.24 10^3/uL (1.8-7.7); Neutrophils % 69.1 %; Nucleated Red Blood Cells % 0 %; Platelet Count 359 10^3/cmm (157-399); Red Blood Count 4.51 10^6/uL (3.85-5.65); Red Cell Distribution Width 14.2 % (12.1-15.1); White Blood Count 13.38 10^3/uL (3.29-11.43)
[2025-04-17 05:16] LABS: Alanine Aminotransferase 15 U/L (0-41); Albumin Level 3.6 g/dL (3.5-5.2); Alkaline Phosphatase 104 U/L (40-130); Anion Gap 14.5 (5-19); Aspartate Amino Transferase 16 U/L (0-40); Blood Urea Nitrogen 31 mg/dL (6-20); Carbon Dioxide 27 mmol/L (22-29); Chloride 90 mmol/L (98-107); Globulin 3.4 g/dL (1.3-4.6); Glomerular Filtration Rate 79.1 mL/min (90-130); Glucose 88 mg/dL (65-115); Osmolality Calculated 272 mOsm/kg (285-295); Potassium 3.5 mmol/L (3.5-5.1); Sodium 128 mmol/L (136-145); Total Bilirubin 0.9 mg/dL (0.15-1.2)
[2025-04-17 08:24] LABS: Glucose Point of Care 95 mg/dL (70-110)
[2025-04-17] MEDS: sodium chloride 1 gm Tablet PO ×2 (09:36→16:28)
[2025-04-17] MEDS: apixaban 5 mg Tablet PO ×2 (09:36→16:25)
[2025-04-17] MEDS: pantoprazole DR 40 mg Tablet PO ×2 (09:36→16:25)
[2025-04-17] MEDS: potassium chloride ER 20 mEq Tablet 40 MEQ PO (09:36)
--- NOTE | 2025-04-17 09:59 | USCV_ITS ---
Bala Cook Age: 49 Gender: M : 1975 Exam Date: 04/17/2025 12:12 Ordering Phys: Kathya Ca NP Technologist: Exam Location: [facility] Indication: afib BP: / HR: Rhythm: Sinus Technical Quality: Adequate MEASUREMENTS (Male / Female) Normal Values Medications Per anesthesia team Complications None Proc. Components After anesthesia team sedated patient, we proceeded with advancing WILLI probe FINDINGS Left Ventricle LV systolic function is severely reduced Right Ventricle Normal in size Right Atrium Grossly dilated Left Atrium Dilated LA Appendage No left atrial appendage thrombus seen IA Septum Gross normal Mitral Valve Structurally normal mitral valve. Moderate mitral regurgitation. Aortic Valve Structurally normal aortic valve. Mild aortic regurgitation Tricuspid Valve Structurally normal tricuspid valve. Mild tricuspid regurgitation. Pulmonic Valve Not well-visualized Pericardium Normal Aorta Grossly normal CONCLUSIONS LV systolic function is severely reduced Left atrial dilation No left atrial appendage thrombus seen Moderate mitral regurgitation. Mild aortic regurgitation Mild tricuspid regurgitation Vincent Bradford MD (Electronically Signed) Final Date: 17 April 2025 17:42 S
--- NOTE | 2025-04-17 10:23 | P.PN_ITS ---
<Statement entered by Vincent Bradford M.D - 04/27/25 09:49> Patient was cared for in conjunction with an advanced practice practitioner.? I reviewed the chart and all pertinent data including imaging, telemetry, and laboratory results.? I discussed the patient in detail with the advanced practice practitioner.? Please see?their note for progress note, testing results and agreed upon plan of care for the patient. Subjective 2 Subjective: Patient's heart rate still uncontrolled. EF is low at 25-30%, potassium is now normal at 3.5. Cardizem was shut off due to hypotension. He is still on Metoprolol 12.5 BID. Morning Eliquis was given. Vitals/I&O/Wt Last Vital Signs Temp 97.6 F 04/16/25 20:00 Pulse 100 04/17/25 05:43 Resp 25 H 04/17/25 04:00 BP 99/66 04/17/25 04:00 Pulse Ox 97 04/17/25 04:00 O2 Del Method Room Air 04/16/25 17:00 04/16/25 04/17/25 04/17/25 22:59 06:59 14:59 Output Total 1999 1250 / 3250 Balance -1999 / -836.583 -1250 / -2086.583 Weight last 48 hrs Weight 255 lb 8 oz Weight 255 lb Weight 260 lb Physical Exam 2 Narrative: General: No apparent distress, healthy appearing, well nourished HENMT: normoceophalic Neck: No carotid bruit bilaterally Muskuloskeletal: Full ROM Respiratory: Normal respiratory effort, clear to auscultation bilaterally throughout all lung wells, no use of accessory muscles Cardio: No JVD, irregularly irregular rate and rhythm, S1 S2 normal, no murmurs, peripheral pulses 2+ radial palpated bilaterally GI: Normal to inspection, nondistended Extremities: Full ROM, normal, normal capillary refill, no cyanosis or edema Neuro: Alert and oriented x4, no focal motor deficits Psych: Affect normal, denies suicidal ideation, mental status grossly normal Skin: No rashes or lesions noted, no wounds Data 04/17/25 04:33 04/17/25 04:33 A&P Assessment and plan (1) Atrial fibrillation with RVR: (2) Hyponatremia: (3) Hypokalemia: (4) Syncope: Plan At this time, patient's rate is still uncontrolled. BP is soft. He is unable to tolerate diltiazem. Will continue metoprolol 12.5 BID. Recommend cardioversion at this time. Patient's EF is chronically low per patient and he is well compensated. PDMP PDMP Reviewed: Not Reviewed Attestations 2 Medical Necessity Statement*: Deferred to primary Coding Level of Care Code Acute Code for [facility] Fwd Diagnoses Atrial fibrillation with RVR I48.91 Hyponatremia E87.1 Hypokalemia E87.6 Syncope, unspecified syncope type R55 Syncope type: unspecified
[2025-04-17 11:27] LABS: Glucose Point of Care 90 mg/dL (70-110)
--- NOTE | 2025-04-17 12:15 | W.PM.OPSUD ---
Surgery/Procedure H&P Update DATE OF PROCEDURE: April 17, 2025 DATE H&P PERFORMED: 04/16/25 H&P UPDATE INFORMATION: I have reviewed H&P completed within last 30 days, I have examined patient prior to procedure and No changes to prior documentation PREOP DIAGNOSIS: Atrial fibrillation with RVR PRIMARY INDICATION FOR PROCEDURE: Atrial fibrillation with RVR PLANNED PROCEDURE: Transesophageal echocardiogram/ Cardioversion OTHER PERTINENT EXAM FINDINGS: Anesthesia team available for procedure
--- NOTE | 2025-04-17 12:19 | ANES.PREANE2 ---
Pre-Anesthetic Assessment Height/Weight: Weight 255 lb 8 oz Temp Pulse Resp BP Pulse Ox O2 Del Method 97.6 F 100 25 H 99/66 97 Room Air 04/16/25 20:00 04/17/25 05:43 04/17/25 04:00 04/17/25 04:00 04/17/25 04:00 04/16/25 17:00 Preop Diagnosis: Atrial fibrillation with RVR Was Beta Satnam taken within 24 hours: Yes Was Clonidine taken within 24 hours: N/A Social No alcohol and No tobacco Exam alert and oriented x 3 Airway Submandibular: within normal limits Cervical ROM: within normal limits Mallampati: Class III Dentition: full Anesthetic Plan ASA status: 4 Anesthesia: MAC Other: No prior issues with anesthesia NPO since yesterday evening Patient presented on 04/15/2025 after falling down. Chronic A-fib with RVR. Patient states he has had this procedure done 8?10 times Chronic hyponatremia. NA 119 at arrival. 128 today Patient was on Cardizem but this had to be turned off due to hypotension Plan for MAC anesthesia Medications/Allergies Home Medications ?Medication ?Instructions ?Recorded ?Confirmed ?Last Taken ?Type albuterol sulfate 90 mcg/actuation 2 puff inhalation Q6H PRN 04/15/25 04/15/25 Unknown History aerosol inhaler Shortness Of Breath Or Wheezing apixaban 5 mg tablet (Eliquis) 5 mg PO BID 04/15/25 04/15/25 04/15/25 History bumetanide 2 mg tablet 6 mg PO BID 04/15/25 04/15/25 04/15/25 History dapagliflozin propanediol 10 mg 10 mg PO DAILY 04/15/25 04/15/25 04/15/25 History tablet (Farxiga) dofetilide 125 mcg capsule 125 mcg PO BID 04/15/25 04/15/25 04/15/25 History fluticasone furoate 100 1 inh inhalation DAILY 04/15/25 04/15/25 04/14/25 History mcg-vilanterol 25 mcg/dose inhalation powder (Breo Ellipta) methocarbamol 500 mg tablet 500 mg PO TID PRN muscles spasm 04/15/25 04/15/25 04/15/25 History metolazone 5 mg tablet See Rx Instructions .Route .COMPLEX 06/04/15/25 04/15/25 History pantoprazole 40 mg tablet,delayed 40 mg PO QPM 04/15/25 04/15/25 04/14/25 19:00 History release potassium chloride 10 mEq 20 meq PO DAILY 04/15/25 04/15/25 04/14/25 History tablet,extended release spironolactone 50 mg tablet 50 mg PO QAM 04/15/25 04/15/25 04/14/25 History Allergies Allergy/AdvReac Type Severity Reaction Status Date / Time amiodarone Allergy Unknown Verified 04/15/25 13:55 Current Medications Generic Name Dose Route Start Last Admin Trade Name Freq PRN Reason Stop Dose Admin Apixaban 5 mg 04/15/25 18:00 04/17/25 09:36 Apixaban 5 Mg Tablet PO 5 mg BID NARA Administration Diltiazem HCl 100 mg/ Sodium 100 mls @ 0 mls/hr 04/15/25 17:45 04/16/25 12:30 Chloride IV 0 mg/hr .Q0M NARA 0 mls/hr Protocol Titration Per Protocol Insulin Human Lispro 0 unit 04/15/25 18:00 04/17/25 11:12 Insulin Lispro 100 Unit/1 Ml SUBCUT Not Given WM&BEDTIME NARA Protocol Metoprolol Tartrate 12.5 mg 04/15/25 22:45 04/17/25 09:35 Metoprolol Tartrate 25 Mg Tablet PO Not Given Q12H NARA Pantoprazole Sodium 40 mg 04/17/25 09:00 04/17/25 09:[address] 40 Mg Tablet PO 40 mg BID NARA Administration Potassium Chloride 40 meq 04/16/25 09:00 04/17/25 09:36 Potassium Chloride Er 20 Meq Tablet PO 40 meq DAILY NARA Administration Sodium Chloride 1 gm 04/17/25 09:00 04/17/25 09:36 Sodium Chloride 1 Gm Tablet PO 1 gm BID NARA Administration Data Anesthesia 04/17/25 04:33 04/17/25 04:33 Short CBC 04/15/25 04/16/25 04/16/25 Range/Units 14:07 04:00 04:47 WBC 12.87 H Cancelled 15.14 H (3.29-11.43) 10^3/uL Hgb 17.50 H Cancelled 16.50 (11.27-16.99) g/dL Hct 46.8 Cancelled 44.2 (37-53) % MCV 87.3 Cancelled 87.9 (82-101) fl Plt Count 441 H Cancelled 367 (157-399) 10^3/cmm Neut % (Auto) 77.5 Cancelled 73.3 % Neut # (Auto) 9.97 H Cancelled 11.09 H (1.8-7.7) 10^3/uL 04/17/25 Range/Units 04:33 WBC 13.38 H (3.29-11.43) 10^3/uL Hgb 15.10 (11.27-16.99) g/dL Hct 42.0 (37-53) % MCV 93.1 D (82-101) fl Plt Count 359 (157-399) 10^3/cmm Neut % (Auto) 69.1 % Neut # (Auto) 9.24 H (1.8-7.7) 10^3/uL BMP 04/15/25 04/15/25 04/15/25 14:07 15:03 17:54 Sodium 119 L* 119 L* 121 L Potassium 2.4 L* 2.2 L* 2.6 L* Chloride 69 L 71 L 73 L Carbon Dioxide 24 24 26 BUN 58 H 56 H 54 H Creatinine 1.6 H 1.5 H 1.4 H Glucose 139 H 134 H 115 Calcium 10.9 H 10.6 H 10.2 04/16/25 04/16/25 04/16/25 00:06 04:00 04:47 Sodium 120 L Cancelled 121 L Potassium 3.0 L Cancelled 3.8 Chloride 74 L Cancelled 78 L Carbon Dioxide 23 Cancelled 25 BUN 54 H Cancelled 53 H Creatinine 1.3 H Cancelled 1.4 H Glucose 112 Cancelled 110 Calcium 10.6 H Cancelled 10.0 04/16/25 04/16/25 04/16/25 10:08 17:12 22:55 Sodium 124 L 124 L 127 L Potassium 2.7 L* D 3.2 L 4.0 Chloride 79 L 83 L 87 L Carbon Dioxide 28 26 29 BUN 50 H 44 H 36 H Creatinine 1.4 H 1.1 1.2 Glucose 98 113 126 H Calcium 10.0 9.0 9.4 04/17/25 04:33 Sodium 128 L Potassium 3.5 Chloride 90 L Carbon Dioxide 27 BUN 31 H Creatinine 1.0 Glucose 88 Calcium 9.0 Liver Function 04/15/25 04/17/25 Range/Units 14:07 04:33 Total Bilirubin 1.3 H 0.9 (0.15-1.2) mg/dL AST 20 16 (0-40) U/L ALT 21 15 (0-41) U/L Alkaline Phosphatase 120 104 (40-130) U/L Albumin 4.5 3.6 (3.5-5.2) g/dL Cardiac Studies: Echocardiogram 04/15/25
--- NOTE | 2025-04-17 12:28 | PC.NURSE ---
DR Bradford at bedside for elton
--- NOTE | 2025-04-17 12:42 | PM.PROC ---
Procedure Note: Date of procedure: 04/17/25 Pre-procedure diagnosis: Atrial fibrillation with RVR Post-procedure diagnosis: other (Normal sinus rhythm) Procedure: After anesthesia team sedated the patient, we proceeded with transesophageal echocardiogram. No left atrial appendage thrombus was seen. We then cardioverted patient successfully to sinus rhythm with 1 synchronized shock at 200J. Performing Provider: Vincent Bradford Complications: None Condition: stable Disposition: ICU Coding Level of Care Code Acute Code for Yuan Zarco
--- NOTE | 2025-04-17 12:42 | PC.NURSE ---
patient cardioverted back to sinus rhythm
[2025-04-17 16:24] LABS: Glucose Point of Care 125 mg/dL (70-110)
--- NOTE | 2025-04-17 16:28 | PM.PN ---
Subjective Subjective: s/p WILLI cardioversion today . na at 127 Medications: Reviewed: Yes Vitals/I&O/Wt Last Vital Signs Temp 97.6 F 04/16/25 20:00 Pulse 73 04/17/25 15:03 Resp 13 04/17/25 12:00 BP 112/67 04/17/25 11:00 Pulse Ox 97 04/17/25 12:00 O2 Del Method Room Air 04/16/25 17:00 04/17/25 04/17/25 04/17/25 06:59 14:59 22:59 Intake Total 1000 / 1000 Output Total 1250 / 3250 200 / 200 Balance -1250 / -2086.583 800 / 800 Weight last 48 hrs Weight 115.893 kg Weight 115.666 kg Physical Exam Narrative: General: No acute distress, AO x3 HEENT: PERRLA, pupils bilaterally equal and reactive, pallors not present Chest: Normal vesicular breath sounds, no added sounds, equal good air entry bilaterally CVS: S1-S2 regular, no murmurs, no tachycardia, no gallops, no rubs Abdomen: Soft, nontender, no organomegaly, bowel sounds present Neuro: No focal deficits, no facial deformity, AO x3, power 5/5 in all limbs Ext: Bruising over the left elbow Data 04/17/25 04:33 04/17/25 04:33 A&P Assessment and plan (1) Syncope: patient with history as noted above presenting with syncopal episode today Supect this may be related to underlying arrhythmia as he is noted to be in A fib with RVR. States that he had cardioversion one month ago following which he had been in sinus rhythm and is surprised to be in A fib today. Possible that RVR may have led to the syncope today, CT head did not show any intracranial lesions or any bleeding check echocardiogram (2) Atrial fibrillation with RVR: Noted to be in A fib with RVR Continue dofetilide Trial of cardizem 10mg IVP followed by cardizem infusion for rate control. Will add bet ablockers additionally Patient reports failiure of several previosu drug classes , uncertain if tried digoxin in the past. 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 related to dofetilide check urine lytes start NS @ 50 cc/ hr and closely monitor. Aim to increase Na by 6-8 meq per 24 hrs , unceratin chronicity check Na every 6 hrs (4) Hypokalemia: hypokalemia, likely medication related supplemented both iv and po check Na every 6 hrs Plan dvt ppx: Eliquis Full code April 16, 2025 Hypokalemia this morning, supplemented with both IV and oral potassium. Improving this afternoon. Sodium improving at 124. Discontinue IV fluids. Start oral salt supplementation, 1 g p.o. daily and closely monitor sodium level. Patient continues to be in A-fib, however rate is better controlled. Discontinue IV fluids today. Will likely undergo WILLI cardioversion tomorrow. Keep n.p.o. for anticipated procedure tomorrow. April 17, 2025 Hypokalemia resolving this morning. Currently at 4.0. Sodium improved at 127. Will continue with oral salt supplementation. IV fluids remain off. He is status post WILLI cardioversion this afternoon. He was successfully cardioverted with 1 synchronized shock at 200 J. Now in sinus rhythm at 73 bpm. Hemodynamics are stable. Metoprolol to be continued. Echocardiogram showing LV systolic function of 25 to 30% with biatrial dilatation. Patient states he has a history of known cardiomyopathy with ejection fraction of 12% at diagnosis. PDMP PDMP Reviewed: Not Reviewed Attestations Medical Necessity Statement*: Status post WILLI cardioversion today Coding Level of Care Code Acute Code for [facility] Fwd Diagnoses Syncope, unspecified syncope type R55 Syncope type: unspecified Atrial fibrillation with RVR I48.91 Hyponatremia E87.1 Hypokalemia E87.6
[2025-04-17 16:40] LABS: Alanine Aminotransferase 16 U/L (0-41); Albumin Level 3.6 g/dL (3.5-5.2); Alkaline Phosphatase 90 U/L (40-130); Anion Gap 13.2 (5-19); Aspartate Amino Transferase 14 U/L (0-40); Blood Urea Nitrogen 23 mg/dL (6-20); Calcium 8.9 mg/dL (8.5-10.5); Carbon Dioxide 26 mmol/L (22-29); Chloride 93 mmol/L (98-107); Globulin 3.1 g/dL (1.3-4.6); Glomerular Filtration Rate 89.3 mL/min (90-130); Glucose 105 mg/dL (65-115); Osmolality Calculated 272 mOsm/kg (285-295); Potassium 3.2 mmol/L (3.5-5.1); Sodium 129 mmol/L (136-145); Total Bilirubin 0.8 mg/dL (0.15-1.2); Total Protein 6.7 g/dL (6.6-8.7)
[2025-04-17 21:04] LABS: Glucose Point of Care 111 mg/dL (70-110)
[2025-04-18] VITALS (18 sets, daily range): BP systolic 98–129; BP diastolic 63–87; PULSE 66–75; RESP 20–23; TEMP 36.4–36.9; O2SAT 95–100
--- NOTE | 2025-04-18 08:37 | PC.NURSE ---
Dr. Ferrari gave v.o. to stop metoprol 12.5 and start 25 mg bid po
[2025-04-18 08:43] LABS: Basophils # 0.1 10^3/uL (0.0-0.1); Basophils % 0.5 %; Eosinophils # 0.1 10^3/uL (0.0-0.8); Eosinophils % 0.4 %; Hematocrit 40.1 % (37-53); Lymphocytes # 2.1 10^3/uL (0.8-4.8); Lymphocytes % 14.2 %; Mean Corpuscular HGB Conc 35.4 g/dL (30-55); Mean Corpuscular Hemoglobin 32.7 pg (27-33); Mean Corpuscular Volume 92.4 fl (82-101); Monocytes # 2.1 10^3/uL (0.2-0.9); Neutrophils # 10.32 10^3/uL (1.8-7.7); Neutrophils % 69.8 %; Nucleated Red Blood Cells % 0 %; Platelet Count 349 10^3/cmm (157-399); Red Blood Count 4.34 10^6/uL (3.85-5.65); Red Cell Distribution Width 13.9 % (12.1-15.1); White Blood Count 14.78 10^3/uL (3.29-11.43)
[2025-04-18 08:50] LABS: Glucose Point of Care 92 mg/dL (70-110)
[2025-04-18 09:06] LABS: Alanine Aminotransferase 14 U/L (0-41); Albumin Level 3.6 g/dL (3.5-5.2); Alkaline Phosphatase 99 U/L (40-130); Anion Gap 15.2 (5-19); Aspartate Amino Transferase 15 U/L (0-40); Blood Urea Nitrogen 15 mg/dL (6-20); Calcium 9.1 mg/dL (8.5-10.5); Carbon Dioxide 28 mmol/L (22-29); Chloride 89 mmol/L (98-107); Globulin 3.5 g/dL (1.3-4.6); Glomerular Filtration Rate 102.3 mL/min (90-130); Glucose 83 mg/dL (65-115); Osmolality Calculated 268 mOsm/kg (285-295); Potassium 3.2 mmol/L (3.5-5.1); Sodium 129 mmol/L (136-145); Total Bilirubin 0.8 mg/dL (0.15-1.2); Total Protein 7.1 g/dL (6.6-8.7)
[2025-04-18] MEDS: pantoprazole DR 40 mg Tablet PO ×2 (09:45→17:17)
[2025-04-18] MEDS: metoprolol tartrate 25 mg Tablet PO ×2 (09:45→21:23)
[2025-04-18] MEDS: sodium chloride 1 gm Tablet PO ×2 (09:45→17:17)
[2025-04-18] MEDS: potassium chloride ER 20 mEq Tablet 40 MEQ PO (09:45)
[2025-04-18] MEDS: apixaban 5 mg Tablet PO ×2 (09:45→17:17)
--- NOTE | 2025-04-18 10:23 | PM.PN ---
Subjective Subjective: Patient is staying in sinus rhythm post cardioversion. No chest pain Vitals/I&O/Wt Last Vital Signs Temp 98.4 F 04/18/25 04:25 Pulse 69 04/18/25 09:00 Resp 13 04/17/25 12:00 BP 114/83 04/18/25 09:00 Pulse Ox 99 04/18/25 09:00 O2 Del Method Room Air 04/16/25 17:00 04/17/25 04/18/25 04/18/25 22:59 06:59 14:59 Intake Total 0.083 / 1000.083 240 / 1240.083 250 / 250 Output Total 1350 / 1550 1700 / 3250 Balance -1349.917 / -549.917 -1460 / -2009.917 250 / 250 Weight last 48 hrs Weight 253 lb 6.4 oz Weight 255 lb 8 oz Weight 255 lb Physical Exam Narrative: GENERAL: Patient is alert, awake and oriented x3. [] NECK: No jugular vein distension. [] HEENT: No cyanosis. No icterus. No pallor. [] HEART: Regular S1 and S2. No murmur, rub or gallop. [] LUNGS: Clear to auscultate bilaterally. [] CENTRAL NERVOUS SYSTEM: Grossly nonfocal. [] EXTREMITIES: Lower extremities with no edema bilaterally. Data 04/19/25 02:45 04/19/25 02:45 A&P Assessment and plan (1) Atrial fibrillation with RVR: (2) Hyponatremia: (3) Hypokalemia: (4) Syncope: Plan Patient is staying in sinus rhythm. Continue Eliquis and metoprolol. Keep holding dofetilide. Currently he is euvolemic. At time of discharge can send home with low-dose diuretic. Thank you for involving us with care of this patient. Will continue to follow. Please call with questions. PDMP PDMP Reviewed: Not Reviewed Attestations Medical Necessity Statement*: Care expected to cross 2 midnights. Coding Level of Care Code Acute Code for [facility] Fwd Diagnoses Atrial fibrillation with RVR I48.91 Hyponatremia E87.1 Hypokalemia E87.6 Syncope, unspecified syncope type R55 Syncope type: unspecified
[2025-04-18 11:44] LABS: Glucose Point of Care 101 mg/dL (70-110)
[2025-04-18 16:36] LABS: Alanine Aminotransferase 14 U/L (0-41); Albumin Level 3.5 g/dL (3.5-5.2); Alkaline Phosphatase 103 U/L (40-130); Anion Gap 17.5 (5-19); Aspartate Amino Transferase 14 U/L (0-40); Blood Urea Nitrogen 14 mg/dL (6-20); Calcium 8.6 mg/dL (8.5-10.5); Carbon Dioxide 23 mmol/L (22-29); Chloride 94 mmol/L (98-107); Globulin 2.9 g/dL (1.3-4.6); Glomerular Filtration Rate 119.4 mL/min (90-130); Glucose 98 mg/dL (65-115); Osmolality Calculated 272 mOsm/kg (285-295); Potassium 3.5 mmol/L (3.5-5.1); Sodium 131 mmol/L (136-145); Total Bilirubin 0.5 mg/dL (0.15-1.2); Total Protein 6.4 g/dL (6.6-8.7)
[2025-04-18 17:10] LABS: Glucose Point of Care 102 mg/dL (70-110)
--- NOTE | 2025-04-18 17:34 | PM.PN ---
Subjective Subjective: Patient remains in sinus rhythm since cardioversion. Sodium at 129 this morning. Medications: Reviewed: Yes Vitals/I&O/Wt Last Vital Signs Temp 98.4 F 04/18/25 16:00 Pulse 68 04/18/25 16:00 Resp 20 H 04/18/25 16:00 BP 103/67 04/18/25 16:00 Pulse Ox 100 04/18/25 16:00 O2 Del Method Room Air 04/18/25 16:00 04/18/25 04/18/25 04/18/25 06:59 14:59 22:59 Intake Total 240 / 1240.083 250 / 250 Output Total 1700 / 3250 860 / 860 Balance -1460 / -2009.917 250 / 250 -860 / -610 Weight last 48 hrs Weight 114.94 kg Weight 115.893 kg Physical Exam Narrative: General: No acute distress, AO x3 HEENT: PERRLA, pupils bilaterally equal and reactive, pallors not present Chest: Normal vesicular breath sounds, no added sounds, equal good air entry bilaterally CVS: S1-S2 regular, no murmurs, no tachycardia, no gallops, no rubs Abdomen: Soft, nontender, no organomegaly, bowel sounds present Neuro: No focal deficits, no facial deformity, AO x3, power 5/5 in all limbs Ext: Bruising over the left elbow Data 04/18/25 08:14 04/18/25 15:51 A&P Assessment and plan (1) Syncope: patient with history as noted above presenting with syncopal episode today Supect this may be related to underlying arrhythmia as he is noted to be in A fib with RVR. States that he had cardioversion one month ago following which he had been in sinus rhythm and is surprised to be in A fib today. Possible that RVR may have led to the syncope today, CT head did not show any intracranial lesions or any bleeding check echocardiogram (2) Atrial fibrillation with RVR: Noted to be in A fib with RVR Continue dofetilide Trial of cardizem 10mg IVP followed by cardizem infusion for rate control. Will add bet ablockers additionally Patient reports failiure of several previosu drug classes , uncertain if tried digoxin in the past. 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 related to dofetilide check urine lytes start NS @ 50 cc/ hr and closely monitor. Aim to increase Na by 6-8 meq per 24 hrs , unceratin chronicity check Na every 6 hrs (4) Hypokalemia: hypokalemia, likely medication related supplemented both iv and po check Na every 6 hrs Plan dvt ppx: Eliquis Full code April 16, 2025 Hypokalemia this morning, supplemented with both IV and oral potassium. Improving this afternoon. Sodium improving at 124. Discontinue IV fluids. Start oral salt supplementation, 1 g p.o. daily and closely monitor sodium level. Patient continues to be in A-fib, however rate is better controlled. Discontinue IV fluids today. Will likely undergo WILLI cardioversion tomorrow. Keep n.p.o. for anticipated procedure tomorrow. April 17, 2025 Hypokalemia resolving this morning. Currently at 4.0. Sodium improved at 127. Will continue with oral salt supplementation. IV fluids remain off. He is status post WILLI cardioversion this afternoon. He was successfully cardioverted with 1 synchronized shock at 200 J. Now in sinus rhythm at 73 bpm. Hemodynamics are stable. Metoprolol to be continued. Echocardiogram showing LV systolic function of 25 to 30% with biatrial dilatation. Patient states he has a history of known cardiomyopathy with ejection fraction of 12% at diagnosis. April 18, 2025 Potassium at 3.2 this morning. Sodium at 129. Will continue with oral salt supplementation. Recheck CMP this afternoon at 4 PM. Patient remains in sinus rhythm after cardioversion.Transfer out of ICU, resume home diuresis at lower dose of 1mg po daily. Started on metoprolol at 25mg BID today now that BP is better. PDMP PDMP Reviewed: Not Reviewed Attestations Medical Necessity Statement*: Transfer out of ICU. Continue to monitor electrolytes. Replete sodium and potassium today. Resume diuresis at a lower dose. Hopefully will be able to discharge in the upcoming 24 hours if electrolytes are improved. Coding Level of Care Code Acute Code for [facility] Diagnoses Syncope, unspecified syncope type R55 Syncope type: unspecified Atrial fibrillation with RVR I48.91 Hyponatremia E87.1 Hypokalemia E87.6
[2025-04-19] VITALS: BP 98/59; PULSE 58; RESP 24; TEMP 37; O2SAT 99
[2025-04-19 03:49] LABS: Basophils % 0.3 %; Eosinophils # 0.1 10^3/uL (0.0-0.8); Eosinophils % 0.7 %; Hematocrit 38.9 % (37-53); Lymphocytes # 1.7 10^3/uL (0.8-4.8); Lymphocytes % 13.3 %; Mean Corpuscular HGB Conc 34.4 g/dL (30-55); Mean Corpuscular Hemoglobin 32.4 pg (27-33); Mean Platelet Volume 9.4 fL (7.4-10.4); Monocytes # 1.6 10^3/uL (0.2-0.9); Monocytes % 12.5 %; Neutrophils # 9.26 10^3/uL (1.8-7.7); Neutrophils % 72.2 %; Nucleated Red Blood Cells % 0 %; Platelet Count 345 10^3/cmm (157-399); Red Blood Count 4.14 10^6/uL (3.85-5.65); Red Cell Distribution Width 14.3 % (12.1-15.1); White Blood Count 12.84 10^3/uL (3.29-11.43)
[2025-04-19 04:00] VITALS: BP 118/83; PULSE 67; RESP 21; TEMP 36.9; O2SAT 99
[2025-04-19 04:03] LABS: Alanine Aminotransferase 15 U/L (0-41); Albumin Level 3.6 g/dL (3.5-5.2); Alkaline Phosphatase 121 U/L (40-130); Anion Gap 14.7 (5-19); Aspartate Amino Transferase 18 U/L (0-40); Blood Urea Nitrogen 12 mg/dL (6-20); Calcium 8.7 mg/dL (8.5-10.5); Carbon Dioxide 26 mmol/L (22-29); Chloride 92 mmol/L (98-107); Globulin 3.1 g/dL (1.3-4.6); Glomerular Filtration Rate 102.3 mL/min (90-130); Glucose 91 mg/dL (65-115); Osmolality Calculated 267 mOsm/kg (285-295); Potassium 3.7 mmol/L (3.5-5.1); Sodium 129 mmol/L (136-145); Total Bilirubin 0.5 mg/dL (0.15-1.2); Total Protein 6.7 g/dL (6.6-8.7)
[2025-04-19] MEDS: sodium chloride 1 gm Tablet PO ×2 (06:47→09:53)
[2025-04-19 08:00] VITALS: BP 113/79; PULSE 58; RESP 16; TEMP 36.4; O2SAT 100
[2025-04-19] MEDS: metoprolol tartrate 25 mg Tablet PO (09:52)
[2025-04-19] MEDS: bumetanide 1 mg Tablet PO (09:53)
[2025-04-19] MEDS: apixaban 5 mg Tablet PO (09:53)
[2025-04-19] MEDS: potassium chloride ER 20 mEq Tablet 40 MEQ PO (09:53)
[2025-04-19] MEDS: pantoprazole DR 40 mg Tablet PO (09:53)
[2025-04-19 11:09] VITALS: BP 110/75; PULSE 65; O2SAT 92
--- NOTE | 2025-04-19 11:35 | P.DS_ITS ---
Discharge Providers Date of Admission: 04/15/25 17:14 Date of Discharge: April 19, 2025 Attending Provider at Admission: Claudette Sanders MD Attending Provider at Discharge: Claudette Sanders MD Diagnoses at Discharge Discharge Diagnosis (1) Atrial fibrillation with RVR: Status: Acute (2) Hyponatremia: Status: Acute (3) Hypokalemia: Status: Acute (4) Syncope: Status: Acute Qualifiers: Syncope type: unspecified Qualified Code(s): R55 - Syncope and collapse Reason for Visit Reason for Visit: Syncope Brief History: atient denies having had any immediate symptoms prior to the syncopal event however says he had been feeling poorly the past few days with generalized weakness. He was admitted at [facility] most recently 3-4 weeks ago for A fib with RVR and had undergone cardioversion. He reports multiple past episodes of A fib RVR , which have needed cardioversion in the past. On Avg, he has needed the procedure at least once a year. He has previously had an ablative procedure which was not successful in keeping in sinus rhythm. He has been recommended to undergo AV node ablation with PPM implantation and is considering this. He has previously tried several medications including sotalol which has not helped. 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 Most recently he is on dofetilide 125mcg BID. He is noted today to have hyponatremia and hypokalemia. He states he has chronic hyponatremia, for which he is on spirinolactone daily, i suspect he may be referring to hypokalemia instead. He takes Bumex everyday for h/o CHF. There has been no recent changes in his diuretic regimen. Denies any GI losses, no nausea, vomiting. Hospital Course Hospital Course Unrefreshing patient was found to be in A-fib with RVR with heart rate up to 140 bpm. He was initially started on a Cardizem infusion, thereafter able to be transition to oral metoprolol. He had several electrolyte abnormalities including hyponatremia and hypokalemia which may be related to dofetilide use versus overdiuresis. At home patient was taking Bumex 6 mg twice daily and also had orders for metolazone as needed however he has not taken any metolazone. Finally oral metoprolol helped with a heart rate, he remained in atrial fibrillation. Ejection fraction was noted to be 20 to 25%, patient states that diagnosis 20 years ago his ejection fraction was 12%. He underwent WILLI cardioversion on April 17, 2025 following which she remained in sinus rhythm. Heart rate is well-controlled on metoprolol 25 mg twice daily. He is net -3.3 L during the course of this admission in spite of his diuretics being on hold and having received normal saline initially in the course of admission for hyponatremia and IV supplementation of potassium. He remained clinically euvolemic during the course of admission. At discharge dose of Bumex has been lowered to 2 mg p.o. daily. Patient was instructed to check his weight. She [place] more than 3 pounds in 3 days, he was recommended to increase his dose of Bumex by an additional 1 mg and keep monitoring his weight. Patient has previously titrated Lasix similarly and appears to be aware on how to manage diuretics. Oral salt supplementation was additionally added at discharge. Dofetilide and spironolactone were discontinued and patient has been discharged on metoprolol instead. Patient encouraged 3 hours away but is going to be in the [place] area for the next week. Follow-up to be arranged with cardiology as outpatient for repeat CMP in 1 week and ensure diuresis and heart rate are under control. Recommended to follow-up with his medical device assembler at [facility] to consider long-term AV paradise ablation and pacemaker. Physical Exam Narrative: General: No acute distress, AO x3 HEENT: PERRLA, pupils bilaterally equal and reactive, pallors not present Chest: Normal vesicular breath sounds, no added sounds, equal good air entry bilaterally CVS: S1-S2 regular, no murmurs, no tachycardia, no gallops, no rubs Abdomen: Soft, nontender, no organomegaly, bowel sounds present Neuro: No focal deficits, no facial deformity, AO x3, power 5/5 in all limbs Discharge Data Studies Completed and Pending Completed Studies During Hospitalization Category Date Time Status CT head wo con* [id number] Stat Cat Scan 04/15/25 14:00 Completed CXRP [XR chest 1V portable [id number]] Stat Exams 04/15/25 14:44 Completed CV. echo complete* [id number] Routine Ultrasound 04/15/25 17:42 Completed US echo WILLI [CV. echo transesophageal [id number]] Routine Ultrasound 04/17/25 09:59 Completed Radiology Impressions Head CT 04/15/25 14:00 IMPRESSION: Negative head CT. Chest X-Ray 04/15/25 14:44 IMPRESSION: 1. Negative chest. Laboratory Results WBC 12.84 10^3/uL (3.29-11.43) H 04/19/25 02:45 Corrected WBC Cancelled 04/16/25 04:00 RBC 4.14 10^6/uL (3.85-5.65) 04/19/25 02:45 Hgb 13.40 g/dL (11.27-16.99) 04/19/25 02:45 Hct 38.9 % (37-53) 04/19/25 02:45 MCV 94.0 fl (82-101) 04/19/25 02:45 MCH 32.4 pg (27-33) 04/19/25 02:45 MCHC 34.4 g/dL (30-55) 04/19/25 02:45 RDW 14.3 % (12.1-15.1) 04/19/25 02:45 Plt Count 345 10^3/cmm (157-399) 04/19/25 02:45 MPV 9.4 fL (7.4-10.4) 04/19/25 02:45 Gran % Cancelled 04/16/25 04:00 Neut % (Auto) 72.2 % 04/19/25 02:45 Lymph % (Auto) 13.3 % 04/19/25 02:45 [place] % (Auto) 12.5 % 04/19/25 02:45 Eos % (Auto) 0.7 % 04/19/25 02:45 Baso % (Auto) 0.3 % 04/19/25 02:45 Neut # (Auto) 9.26 10^3/uL (1.8-7.7) H 04/19/25 02:45 Lymph # (Auto) 1.7 10^3/uL (0.8-4.8) 04/19/25 02:45 [place] # (Auto) 1.6 10^3/uL (0.2-0.9) H 04/19/25 02:45 Eos # (Auto) 0.1 10^3/uL (0.0-0.8) 04/19/25 02:45 Baso # (Auto) 0.0 10^3/uL (0.0-0.1) 04/19/25 02:45 Absolute Gran (auto) Cancelled 04/16/25 04:00 Nucleated RBC % (auto) 0 % 04/19/25 02:45 Nucleated RBCs # 0.0 /100WBC 04/19/25 02:45 Sodium 129 mmol/L (136-145) L 04/19/25 02:45 Potassium 3.7 mmol/L (3.5-5.1) 04/19/25 02:45 Chloride 92 mmol/L (98-107) L 04/19/25 02:45 Carbon Dioxide 26 mmol/L (22-29) 04/19/25 02:45 Anion Gap 14.7 (5-19) 04/19/25 02:45 BUN 12 mg/dL (6-20) 04/19/25 02:45 Creatinine 0.8 mg/dL (0.7-1.2) 04/19/25 02:45 GFR Calculation 102.3 mL/min (90-130) 04/19/25 02:45 Glucose 91 mg/dL (65-115) 04/19/25 02:45 POC Glucose 102 mg/dL (70-110) 04/18/25 16:16 Calculated Osmolality 267 mOsm/kg (285-295) L 04/19/25 02:45 Calcium 8.7 mg/dL (8.5-10.5) 04/19/25 02:45 Magnesium 2.6 mg/dL (1.7-2.3) H 04/16/25 04:47 Total Bilirubin 0.5 mg/dL (0.15-1.2) 04/19/25 02:45 AST 18 U/L (0-40) 04/19/25 02:45 ALT 15 U/L (0-41) 04/19/25 02:45 Alkaline Phosphatase 121 U/L (40-130) 04/19/25 02:45 Total Protein 6.7 g/dL (6.6-8.7) 04/19/25 02:45 Albumin 3.6 g/dL (3.5-5.2) 04/19/25 02:45 Globulin 3.1 g/dL (1.3-4.6) 04/19/25 02:45 Ur Random Sodium 38 mmol/L 04/16/25 04:42 Vitals Last Vital Signs Temp 97.5 F L 04/19/25 08:00 Pulse 65 04/19/25 11:09 Resp 16 04/19/25 08:00 BP 110/75 04/19/25 11:09 Pulse Ox 92 04/19/25 11:09 O2 Del Method Room Air 04/19/25 08:00 Discharge Plan Discharge Patient Disposition: Home Condition: Stable Prescriptions: New sodium chloride 1,000 mg Tablet,Soluble 1,000 mg PO DAILY 7 Days Qty: 7 0RF metoprolol succinate 50 mg tablet extended release 24 hr 50 mg PO DAILY 30 Days Qty: 30 0RF Continued methocarbamol 500 mg Tablet 500 mg PO TID PRN (Reason: muscles spasm) potassium chloride 10 mEq Tablet Extended Release 20 meq PO DAILY pantoprazole 40 mg tablet,delayed release (DR/EC) 40 mg PO QPM albuterol sulfate 90 mcg/actuation Hfa Aerosol Inhaler 2 puff INHALATION Q6H PRN (Reason: Shortness Of Breath Or Wheezing) fluticasone furoate-vilanterol [Breo Ellipta] 100-25 mcg/dose Blister With Device 1 inh INHALATION DAILY Rx Instructions: Rinse mouth do not swallow Eliquis 5 mg tablet 5 mg PO BID Qty: 60 0RF dapagliflozin propanediol [Farxiga] 10 mg Tablet 10 mg PO DAILY Qty: 30 0RF Changed bumetanide 2 mg Tablet 2 mg PO DAILY 30 Days Qty: 30 0RF Discontinued metolazone 5 mg Tablet See Rx Instructions .ROUTE .COMPLEX Rx Instructions: Take 1tablet by mouth daily as needed for weight gain of 2 lbs in 1day or 5 pounds in 1 week dofetilide 125 mcg Capsule 125 mcg PO BID spironolactone 50 mg Tablet 50 mg PO QAM Discharge Orders: Discharge Order (Routine); Ordered 04/19/25 Ordered By: Claudette Sanders Referrals: Jade Mclaughlin FNP [Nurse Practitioner, Cardiology] - 7-10 days Referral Note: We have notified your physician's clinic of the need for a follow-up appointment to be scheduled. If you have not heard from them within the next 2 business days, please call them directly. Discharge Diet: Usual diet and Cardiac Discharge Activity: Resume usual activity Patient Instructions: Metoprolol (By mouth), Sodium Chloride (By mouth), A-fib (Atrial Fibrillation) (DC), Hyponatremia (DC), Hypokalemia (DC), Syncope (DC), Opioid Safety, Patient Portal & Kenny Instructions Activity Restrictions/Additional Instructions: Follow up with your primary doctor for at least 7 to 10 days to follow up with your sodium level. Discharge Attestations Time Spent in Discharge Care*: greater than 30 min Quality Metrics Clinical Quality Measures [ No reported AMI, CVA or VTE this stay] Coding Level of Care Code Acute Code for [facility] Diagnoses Atrial fibrillation with RVR I48.91 Hyponatremia E87.1 Hypokalemia E87.6 Syncope, unspecified syncope type R55 Syncope type: unspecified
--- NOTE | 2025-04-19 11:46 | PC.NURSE ---
transportation set up By our cold storage supervisor. Pt agreed to pay 50$ to bring him to [facility].
--- NOTE | 2025-04-19 11:56 | PC.NURSE ---
Discharge Note Patient discharged to home via taxi cab accompanied by local combination truck driver. Discharge instructions reviewed with patient and/or hardware supplies sales representative. Mobile pharmacy medications and/or prescriptions provided. dispense 1 tab of Metoprolol 25 mg for tonight dose per Dr. Sanders telephone order. Belongings/home medications returned.
== END 2025-04-19 11:46 | disposition home or self-care (01) | DRG 309 ==
LOC: ER 16:33 → ER IP 17:15 → ICU 20:23 → ER IP 21:12 → ICU 04-16 10:54 → CSU 04-18 13:39
PROVIDERS: Internal Medicine; Admitting Provider Student in an Organized Health Care Education/Training Program; Emergency Provider Emergency Medicine; Visit Provider Student in an Organized Health Care Education/Training Program
DX: I48.91 Unspecified atrial fibrillation (principal); E87.1 Hypo-osmolality and hyponatremia; I50.20 Unspecified systolic (congestive) heart failure; E87.6 Hypokalemia; R55 Syncope and collapse; I95.9 Hypotension, unspecified; I08.3 Combined rheumatic disorders of mitral, aortic and tricuspid valves; Z79.01 Long term (current) use of anticoagulants
CPT/HCPCS: 36415; 36416; 70450; 71045; 80048; 80053; 82962; 83735; 84300; 85025; 93005; 93306; 93312; 93320; 93325; 96365; 96366; 96367; 96375; 99291; J2405; J2704; J3480; J3490; J7030; J9999